=== PATIENT | male | born 1965 | race African-American/Black ===

== ENCOUNTER 2017-07-07 09:22 | Outpatient (CLI) | payer MEDICARE, MEDICAID ==
--- NOTE | 2017-07-08 12:02 | RAD ---
MODIFIED BARIUM SWALLOW WITH SPEECH THERAPIST: HISTORY: A 52-year-old male patient with unspecified dysphagia and feeding difficulty. FLUOROSCOPY TIME: 26.8 seconds DOSE: 12 mGy TECHNIQUE: The patient was given multiple consistencies and evaluated in the upright and lateral position. FINDINGS: There was some minimal premature spillage in the vallecula with some slight residual. No evidence of penetration or aspiration. IMPRESSION: Some premature spillage in the vallecula. No penetration of aspiration. Please see respiratory therapy report for additional findings and recommendations. POS: [facility]
== END 2017-07-07 09:23 | disposition home or self-care (01) ==
PROVIDERS: ATTEND Nurse Practitioner Family
DX: I69.191 Dysphagia following nontraumatic intracerebral hemorrhage (principal); R13.10 Dysphagia, unspecified; R63.3 Feeding difficulties
CPT/HCPCS: 74230; G8996-GN-CJ; G8997-GN-CJ; G8998-GN-CJ

== ENCOUNTER 2023-09-02 05:53 | Day surgery (SDC) | payer MEDICARE, MEDICAID ==
[2023-09-01 12:04] VITALS: BMI 25.7
[2023-09-02] MEDS ORDERED: PROPOFOL 20 ML ONE ×2 (07:52→08:07)
[2023-09-02] MEDS ORDERED: Lidocaine 1% PF 5 ML VIAL ONE (07:53)
== END 2023-09-02 09:16 | disposition home or self-care (01) ==
LOC: SDC 05:53
PROVIDERS: ATTEND Internal Medicine Gastroenterology
PROC: 0DJD8ZZ Inspection of Lower Intestinal Tract, Via Natural or Artificial Opening Endoscopic (ICD-10-PCS; principal; 2023-09-02)
DX: Z12.11 Encounter for screening for malignant neoplasm of colon (principal); K31.89 Other diseases of stomach and duodenum; N18.9 Chronic kidney disease, unspecified; K21.9 Gastro-esophageal reflux disease without esophagitis; F20.9 Schizophrenia, unspecified; Z79.899 Other long term (current) drug therapy; Z88.8 Allergy status to other drugs, medicaments and biological substances
CPT/HCPCS: G0121; J2704